=== PATIENT | female | born 1980 | race Caucasian/White ===

== ENCOUNTER 2017-10-30 15:49 | Emergency (ER) | payer MEDICAID, OTHER ==
[~2017-10-30] VITALS: Ht 160 cm; Wt 63.0 kg
[2017-10-30 16:09] VITALS: BP 125/69
== END 2017-10-30 21:25 | disposition home or self-care (01) ==
LOC: ER 21:24
DX: L03.115 Cellulitis of right lower limb (principal)
CPT/HCPCS: 99283